=== PATIENT | female | born 1975 ===

== ENCOUNTER 2025-01-13 08:45 | Inpatient (IN) | payer OTHER ==
[~2025-01-13] VITALS: Ht 149.9 cm; Wt 59.4 kg
[2025-01-13 09:47] LABS: BASO % 0.7 % (0.1-1.2); EOS # 0.32 (0.04-0.54); EOS % 7.1 % (0.7-7.0); LYMPH # 1.50 (1.18-3.74); LYMPH % 33.4 % (19.3-53.1); MEAN PLATELET VOLUME 10.90 fl (9.4-12.4); MONO # 0.33 (0.24-0.82); MONO % 7.3 % (4.7-12.5); NEUT # 2.30 (1.56-6.13); NEUT % 51.3 % (34.0-71.1); RED CELL DISTRIBUTION WIDTH 13.2 % (11.6-14.4); URINE APPEARANCE Clear; URINE BILIRRUBIN Negative (NEGATIVE); URINE BLOOD Negative; URINE COLOR Yellow; URINE GLUCOSE Negative (NEGATIVE); URINE KETONE Negative (NEGATIVE); URINE LEUKOCYTE Small; URINE NITRATE Negative; URINE PROTEIN Negative (NEGATIVE); URINE UROBILINOGEN 0.2 E.U./dl
[2025-01-13 09:51] LABS: URINE BACTERIA 11.9 uL (0.0-1933); URINE EPITHELIAL CELLS 1.5 uL (0.0-38.8); URINE RBC 2.7 uL (0.0-20.8); URINE WBC 165.2 uL (0.0-23.2)
[2025-01-13 09:52] VITALS: BP 146/89; BP 156/87
[2025-01-13 10:02] LABS: URINE CAST 0.00 uL (0.0-1.40)
[2025-01-13 10:16] LABS: ALT/SGPT 58.0 U/L (12-78); AST/SGOT 26.0 U/L (15-37); BILIRUBIN TOTAL 0.82 mg/dL (0.3-1.2); BUN CREA RATIO 17.0 (7.0-25.0); CREATININE SERUM 0.7 mg/dL (0.55-1.02); GFR 88.57; GLOBULINA 3.9 G/DL (2.4-3.5); GLUCOSE FASTING 93.0 mg/dL (65-100); OSMOLALITY SERUM 286.0 MOSM/KG (275-295)
[2025-01-13 10:34] LABS: INR 0.98
[2025-01-18] MEDS ORDERED: PANTOPRAZOLE SODIUM 40 MG/VIAL VIAL IV ONE (09:15)
[2025-01-18] MEDS ORDERED: POVIDONE-IODINE 118 ML BOTT TOP ONE (09:15)
[2025-01-18] MEDS ORDERED: CEFAZOLIN SODIUM 1,000 MG VIAL IV ONE (09:15)
[2025-01-18] MEDS ORDERED: SUGAMMADEX SODIUM 200 MG/2 ML VIAL IV ONE ×2 (09:20→10:15)
[2025-01-18] MEDS ORDERED: ONDANSETRON HCL 2 MG/ML VIAL ONE (10:04)
[2025-01-18] MEDS ORDERED: MORPHINE SULFATE 4 MG/ML VIAL IV ONE (10:30)
[2025-01-18] MEDS ORDERED: RINGERS SOLUTION,LACTATED 1,000 ML IV PUSH SCH (12:45)
[2025-01-18] MEDS ORDERED: MORPHINE SULFATE 4 MG/ML CARTRIDGE IV SCH (13:00)
[2025-01-18 13:27] VITALS: BP 146/89
[2025-01-18] MEDS ORDERED: ONDANSETRON HCL 2 MG/ML VIAL IV SCH (17:00)
[2025-01-18] MEDS ORDERED: CEFAZOLIN SODIUM 1,000 MG VIAL IV SCH (17:00)
[2025-01-18 17:42] VITALS: BP 169/62
[2025-01-19 00:35] VITALS: BP 140/80
[2025-01-19 04:30] VITALS: BP 141/80
[2025-01-19] MEDS ORDERED: KETOROLAC TROMETHAMINE 10 MG TABLET PO SCH (06:00)
[2025-01-19 08:00] VITALS: BP 148/80
[2025-01-19] MEDS ORDERED: DOCUSATE SODIUM 100MG CAP PO SCH (09:00)
[2025-01-19 19:12] VITALS: BP 145/82
[2025-01-20 00:25] VITALS: BP 140/80
[2025-01-20 08:00] VITALS: BP 119/83
== END 2025-01-20 09:49 | disposition home or self-care (01) | DRG 743 ==
LOC: O/R 01-18 06:00 → OB/GYN 01-18 06:00 → SURH 01-18 08:45 → OB/GYN 01-18 13:21
PROVIDERS: ADMIT Obstetrics & Gynecology; ATTEND Obstetrics & Gynecology
PROC: 0UT70ZZ Resection of Bilateral Fallopian Tubes, Open Approach (ICD-10-PCS; 2025-01-18)
PROC: 0UN00ZZ Release Right Ovary, Open Approach (ICD-10-PCS; 2025-01-18)
PROC: 0DNW0ZZ Release Peritoneum, Open Approach (ICD-10-PCS; 2025-01-18)
PROC: 0UT90ZZ Resection of Uterus, Open Approach (ICD-10-PCS; principal; 2025-01-18 11:45)
DX: D25.2 Subserosal leiomyoma of uterus (principal); N72 Inflammatory disease of cervix uteri; N80.03 Adenomyosis of the uterus; N83.311 Acquired atrophy of right ovary; N83.12 Corpus luteum cyst of left ovary